=== PATIENT | female | born 1990 | race Caucasian/White ===

== ENCOUNTER 2016-08-22 11:28 | Emergency (ER) | payer MEDICAID ==
[~2016-08-22 11:28] MED LIST: AMOX500T PO; IBUP-232 PO; LEVE500 PO; NORC7.5T PO
--- NOTE | 2016-08-22 12:25 | PD ---
HPI Chief Complaint Pain Date Seen: Aug 22, 2016 Travel History International Travel<30 Days: No Contact w/Intl Traveler<30Days: No History of Present Illness HPI Ms. Uribe is a 25 y/o at 24 weeks gestation per patient report presenting to the OB ED with pelvic and low back pain for . She states that she has had 10/10 stabbing pain since yesterday. The pain radiates from her back to the front and down into her groin. She endorses good movement without loss of fluid, discharge, bleeding, or dysuria. She has not had care thus far in . History Past Medical History Narrative Medical Seizure Disorder with a seizure yesterday Obstetric History Obstetric History All uncomplicated vaginal deliveries Past Surgical History Narrative Surgical None reported Family History Narrative Family History Denies significant family history Social History Alcohol Use: No Tobacco Use: Yes (1 and /2 ppd) Substance Abuse: Yes (Oxycodone 30mg TID (unprescribed) and intermittent Marijuana ) Allergies-Medications (Allergen,Severity, Reaction): Coded Allergies: No Known Allergies (Verified , 11/23/14) Per pt. Home Meds Active Scripts Metronidazole (Flagyl)250 Mg Vry049 Mg PO TID #21 TAB Ref 0 Prov:Louis Beverly MD R1 08/22/16 Ibuprofen (Motrin)600 Mg [id number] Mg PO TIDPRN #30 Prov:Job Melgar MD 01/08/11 Reported Medications Hydrocodone-Acetaminophen 7.5-325 mg ([place] 7.5-325 mg)7.5 Mg/325 Mg Tab1 Tab PO Q4-6H PRN (PAIN) 11/23/14 Amoxicillin 500 Mg Mmv135 Mg PO DIRECTED 11/23/14 Levetiracetam (Keppra)500 Mg Cle323 Mg PO BID 11/23/14 Review of Systems General / Constitutional: No: Fever Eyes: No: Blurred Vision HENT: No: Headaches Cardiovascular: No: Chest Pain or Discomfort Respiratory: No: Short of Breath Gastrointestinal: No: Nausea, Vomiting, Diarrhea Genitourinary: No: Dysuria, Discharge, Vaginal Bleeding Musculoskeletal: No: Weakness Skin: No Rash Neurologic: Seizures Endocrine: No: Polydipsia Hematologic/Lymphatic: No Lymph Node Enlargement Physical Exam Narrative GENERAL: Well-nourished, well-developed patient. SKIN: Warm and dry. HEAD: Normocephalic and atraumatic. EYES: No scleral icterus. No injection or drainage. ENT: No nasal drainage noted. Mucous membranes pink. Airway patent. NECK: Supple, trachea midline. No JVD. CARDIOVASCULAR: Regular rate and rhythm without murmurs, gallops, or rubs. RESPIRATORY: Breath sounds equal bilaterally. No accessory muscle use. ABDOMEN/GI: Abdomen soft, non-tender, bowel sounds present, no rebound, no guarding. TTP over lower 2 quadrants. GENITOURINARY: External Genitalia: intact and normal in appearance Cervix: Posterior Dilatation: Closed Effacement: 0% Station: -3 Presentation: Vertex Membranes: Intact FHT's: Category: 1 Baseline: 145 Reactive: + Variability: Moderate Decels: 0 EXTREMITIES: No cyanosis or edema. BACK: Nontender without obvious deformity. Mild tenderness to lower back near paraspinal muscles. NEUROLOGICAL: Awake and alert. Motor and sensory grossly within normal limits. Five out of 5 muscle strength in all muscle groups. Normal speech. Data Data Vital Signs Reviewed: Yes Orders Vital Signs (Adult) .ON ADMISSION (08/22/16 11:47) ^ Labor Status (08/22/16 11:47) Urinalysis - C+S If Indicated (08/22/16 11:47) Us Ob Pelvis >14 Wks Fetus (08/22/16 ) Meperidine Inj (Demerol Inj) (08/22/16 12:30) Promethazine Inj (Phenergan Inj) (08/22/16 12:30) MDM Medical Record Reviewed: Yes Plan Ms. Uribe is a 25 y/o at 24 weeks per patient report presenting to the OB ED with pelvic and low back pain from [facility] with no care 1. IUP at unknown gestational age -Continue routine antepartum care -Category 1 tracing, reassuring -Encourage oral hydration -OB Diagnostic US for dating, growth, and anatomy evaluation 2. Lower Back Pain -Per history and examination pain most likely musculoskeletal or ligamentous in nature -UA: Moderate leukocyte esterase, 13 WBC with clumps, occasional trichomonas -UC: pending -Flagyl 250mg TID for 7 days -Demerol 50mg IM -Phenergan 25mg IM Discharge: Patient will be discharged home after OB Diagnostic US of evaluation. Discharge instructions given to the patient on when to return to the hospital for further evaluation. Patient also to be discharged home with Flagyl for UTI and trichomonas. SDW: Dr. Cervantes Diagnosis Diagnosis: Primary Impression: 24 weeks gestation of Additional Impression: Low back pain Disposition: 01 DISCHARGE HOME Condition: Stable Scripts Metronidazole (Flagyl)250 Mg [id number] Mg PO TID #21 TAB Ref 0 Prov:Louis Beverly MD R1 08/22/16 Louis Beverly MD R1 Aug 22, 2016 12:25
[2016-08-22 12:55] LABS: BACTERIA, URINE OCC /hpf; BLOOD, URINE NEG (NEG); COMMENT (UR) CULTURE INDICATED; CULTURE IF INDICATED CULTURE INDICATED; GLUCOSE,URINE NEG (NEG); KETONE, URINE 80 mg/dL (NEG); MUCUS URINE FEW /lpf (OCC); NITRITE,URINE NEG (NEG); PH, URINE 6.5 (5.0-8.5); SQUAMOUS EPITHELIAL CELL URINE 3 /hpf (0-5); URINE COLOR DARK-YELLOW (YELLW/STRAW)
[2016-08-22] MEDS ORDERED: PROMETHAZINE INJ 25 MG/ML VIAL IM ONE (14:00)
[2016-08-22] MEDS ORDERED: MEPERIDINE HCL 50 MG/ML VIAL IM ONE (14:00)
[2016-08-22] MEDS ORDERED: METR250 PO (14:36)
--- NOTE | 2016-08-22 14:56 | PD ---
HPI Chief Complaint pain , needs ultrasound to confirm viability before she can go to rehabilitation for drugs Date Seen: Aug 22, 2016 Travel History International Travel<30 Days: No Contact w/Intl Traveler<30Days: No Known Affected Area: No History of Present Illness HPI Patient is a 25-year-old white female is supposed to be 24 weeks gestation according the patient she's here for ultrasound to confirm viability before she can go to the drug rehabilitation facility requirement that facility. She complains of abdominal pain and low back pain generalized malaise she is a chronic user of drugs takes OxyContin on a regular basis she denies bleeding rupture the membranes or contractions. And she has no care to speak of Para: 4 : 5 History Obstetric History Obstetric History 4 vaginal deliveries Social History Narrative Social History She has a history of ongoing drug use and is planning to get in the rehabilitation facility today Alcohol Use: Yes Tobacco Use: Yes Substance Abuse: Yes Allergies-Medications (Allergen,Severity, Reaction): Coded Allergies: No Known Allergies (Verified , 11/23/14) Per pt. Home Meds Active Scripts Metronidazole (Flagyl)250 Mg Kya360 Mg PO TID #21 TAB Ref 0 Prov:Louis Beverly MD R1 08/22/16 Ibuprofen (Motrin)600 Mg Ijh495 Mg PO TIDPRN #30 Prov:Job Melgar MD 01/08/11 Reported Medications Hydrocodone-Acetaminophen 7.5-325 mg ([place] 7.5-325 mg)7.5 Mg/325 Mg Tab1 Tab PO Q4-6H PRN (PAIN) 11/23/14 Amoxicillin 500 Mg Ple324 Mg PO DIRECTED 11/23/14 Levetiracetam (Keppra)500 Mg Mny570 Mg PO BID 11/23/14 Review of Systems Gastrointestinal: Abdominal Pain Musculoskeletal: Pain Physical Exam Narrative GENERAL: Well-nourished, well-developed patient. SKIN: Warm and dry. HEAD: Normocephalic and atraumatic. EYES: No scleral icterus. No injection or drainage. ENT: No nasal drainage noted. Mucous membranes pink. Airway patent. NECK: Supple, trachea midline. No JVD. CARDIOVASCULAR: Regular rate and rhythm without murmurs, gallops, or rubs. RESPIRATORY: Breath sounds equal bilaterally. No accessory muscle use. BREASTS: Bilateral exam showed no masses , no retractions, no nipple discharge. ABDOMEN/GI: Abdomen soft, tender, bowel sounds present, no rebound, no guarding , no CVA tenderness, no back pain is some is noted and somewhat tender Gravid to [-26 week] weeks size Fundal Height: [-1-6 cm] GENITOURINARY: External Genitalia: intact and normal in appearance BUS glands: [-] Cervix: [Posterior-] Dilatation: [-Closed] Effacement: [-] Thick Station: [-3] Presentation: [-] Membranes: [intact ] Uterine Contractions: [none-] FHT's: Category: [1-] Baseline: [-133] Reactive: [yes-] Variability: [-] Decels: [-none] EXTREMITIES: No cyanosis or edema. BACK: Nontender without obvious deformity. No CVA tenderness. NEUROLOGICAL: Awake and alert. Motor and sensory grossly within normal limits. Five out of 5 muscle strength in all muscle groups. Normal speech. Data Data Orders Vital Signs (Adult) .ON ADMISSION (08/22/16 11:47) ^ Labor Status (08/22/16 11:47) Urinalysis - C+S If Indicated (08/22/16 11:47) Us Ob Pelvis >14 Wks Fetus (08/22/16 ) Meperidine Inj (Demerol Inj) (08/22/16 14:00) Promethazine Inj (Phenergan Inj) (08/22/16 14:00) Urine Culture (08/22/16 12:16) Labs Laboratory Tests Test 08/22/16 12:16 Urine Color DARK-YELLOW Urine Turbidity HAZY Urine pH 6.5 Urine Specific [place] 1.034 Urine Protein 30 Urine Glucose (UA) NEG Urine Ketones 80 Urine Occult Blood NEG Urine Nitrite NEG Urine Bilirubin NEG Urine Urobilinogen 4.0 Urine Leukocyte Esterase MOD Urine RBC 4 Urine WBC 13 Urine WBC Clumps RARE Urine Squamous Epithelial 3 Cells Urine Bacteria OCC Urine Mucus FEW Urine Trichomonas OCC Microscopic Urinalysis Comment CULTURE INDICATED Date/Time Procedure Status Source Growth 08/22/16 12:16 Urine Culture Received Urine Clean Catch Pending MDM Interpretation(s) Patient is 25-year-old white female with ultrasound today showing gestational age of 28 weeks 6 days and she has no care to speak of no other gestational criteria. She believes she was 24 weeks but are ultrasounds is 28 wks 6 d essentially 29 weeks gestation and a OPAL of 11/08/16. Plan Patient was seen on OB ED had a reactive NST, no contractions noted. She was having low back pain and was given IM shot of Demerol 50 mg 25 mg Phenergan and , as said before, her ultrasound was done today shows her gestational age at 28 weeks 6 days to be discharged to the rehabilitation facility and encouraged not to do drugs Diagnosis Diagnosis: Primary Impression: Low back pain Additional Impressions: 29 weeks gestation of Drug abuse during Trichomoniasis of bladder Disposition: 01 DISCHARGE HOME Condition: Stable Scripts Metronidazole (Flagyl)250 Mg [id number] Mg PO TID #21 TAB Ref 0 Prov:Louis Beverly MD R1 08/22/16 Patient Instructions: General Instructions Departure Forms: Tests/Procedures Valdez Cervantes II, MD Aug 22, 2016 14:56
[2016-08-22 15:06] VITALS: RESP 18
== END 2016-08-22 15:20 | disposition home or self-care (01) ==
LOC: HOBED 11:28
DX: O98.313 Other infections with a predominantly sexual mode of transmission complicating pregnancy, third trimester (principal); A59.03 Trichomonal cystitis and urethritis; O99.323 Drug use complicating pregnancy, third trimester; F19.10 Other psychoactive substance abuse, uncomplicated; M54.5 Low back pain; Z3A.29 29 weeks gestation of pregnancy
CPT/HCPCS: 76805; 81001; 87086; 96372; 99284; J2175; J2550

== ENCOUNTER 2016-08-24 09:42 | Emergency (ER) | payer MEDICAID ==
[~2016-08-24 09:42] MED LIST changes: +METR250 PO
[2016-08-24 10:04] VITALS: BP 94/51; PULSE 64
[2016-08-24] MEDS ORDERED: MEPERIDINE HCL 25 MG/ML VIAL IM ONE (10:45)
[2016-08-24] MEDS ORDERED: PROMETHAZINE INJ 25 MG/ML VIAL IM ONE (10:45)
[2016-08-24] MEDS ORDERED: LORazepam 2 MG/ML VIAL IM ONE (10:45)
[2016-08-24 11:00] LABS: BACTERIA, URINE OCC /hpf; BLOOD, URINE NEG (NEG); COMMENT (UR) CULT NOT INDICATED; CULTURE IF INDICATED CULT NOT INDICATED; GLUCOSE,URINE NEG (NEG); KETONE, URINE 10 mg/dL (NEG); MUCUS URINE FEW /lpf (OCC); NITRITE,URINE NEG (NEG); PH, URINE 7.5 (5.0-8.5); SQUAMOUS EPITHELIAL CELL URINE 11 /hpf (0-5); URINE COLOR YELLOW (YELLW/STRAW)
[2016-08-24 11:11] LABS: AMPHETAMINE, URINE NEG (NEG); BARBITURATES, URINE NEG (NEG); COCAINE, URINE NEG (NEG)
--- NOTE | 2016-08-24 11:11 | PD ---
HPI Chief Complaint Complains of low back pain and lower abdominal pain diarrhea denies bleeding or rupture the membranes baby is active Date Seen: Aug 24, 2016 Travel History International Travel<30 Days: No Contact w/Intl Traveler<30Days: No History of Present Illness HPI Patient is a 25-year-old white female G4 5 P4 at 29 weeks gestation presents from [facility] for evaluation of abdominal pain low back pain diarrhea overall malaise. Patient was here 2 days ago for basically the same thing at that time had the ultrasound established her gestational at 29 weeks now and prior to that had essentially no care. He has a long history of chronic drug use including cocaine amphetamines OxyContin and other narcotics and for the last several days is done without those substances and may well be having some withdrawal type symptoms symptomatology. She denies bleeding or ruptured membranes or baby is active heart rate tracing is reactive and she is not harrison Para: 4 : 5 History Past Medical History Narrative Medical History of multidrug abuse and use Obstetric History Obstetric History 4 vaginal deliveries all of which in her mother's custody Social History Alcohol Use: Yes Tobacco Use: Yes Substance Abuse: Yes Allergies-Medications (Allergen,Severity, Reaction): Coded Allergies: No Known Allergies (Verified , 11/23/14) Per pt. Home Meds Active Scripts Metronidazole (Flagyl)250 Mg Fim384 Mg PO TID #21 TAB Ref 0 Prov:Louis Beverly MD R1 08/22/16 Ibuprofen (Motrin)600 Mg May746 Mg PO TIDPRN #30 Prov:Job Melgar MD 01/08/11 Reported Medications Hydrocodone-Acetaminophen 7.5-325 mg ([place] 7.5-325 mg)7.5 Mg/325 Mg Tab1 Tab PO Q4-6H PRN (PAIN) 11/23/14 Amoxicillin 500 Mg [id number] Mg PO DIRECTED 11/23/14 Levetiracetam (Keppra)500 Mg Zzi582 Mg PO BID 11/23/14 Review of Systems Gastrointestinal: Abdominal Pain Musculoskeletal: Weakness Physical Exam Narrative GENERAL: Well-nourished, well-developed patient.in mild distress SKIN: Warm and dry. HEAD: Normocephalic and atraumatic. EYES: No scleral icterus. No injection or drainage. ENT: No nasal drainage noted. Mucous membranes pink. Airway patent. NECK: Supple, trachea midline. No JVD. CARDIOVASCULAR: Regular rate and rhythm without murmurs, gallops, or rubs. RESPIRATORY: Breath sounds equal bilaterally. No accessory muscle use. BREASTS: Bilateral exam showed no masses , no retractions, no nipple discharge. ABDOMEN/GI: Abdomen soft, non-tender, bowel sounds present, no rebound, no guarding,no CVAT Gravid to [28 wk-] weeks size Fundal Height: [26 cm-] GENITOURINARY: External Genitalia: intact and normal in appearance BUS glands: [-] Cervix: [posterior-] Dilatation: [-closed] Effacement: [-thick] Station: [-3] Presentation: [-] Membranes: [intact ] Uterine Contractions: [none-] FHT's: Category: [1-] Baseline: [-144] Reactive: [yes-] Variability: [mod-] Decels: [-none] EXTREMITIES: No cyanosis or edema. BACK: Nontender without obvious deformity. No CVA tenderness. NEUROLOGICAL: Awake and alert. Motor and sensory grossly within normal limits. Five out of 5 muscle strength in all muscle groups. Normal speech. Data Data Orders Vital Signs (Adult) .ON ADMISSION (08/24/16 10:23) ^ Labor Status (08/24/16 10:23) Urinalysis - C+S If Indicated (08/24/16 10:23) Ob/Psych Drug Screen, Urine (08/24/16 10:23) Meperidine Inj (Demerol Inj) (08/24/16 10:45) Promethazine Inj (Phenergan Inj) (08/24/16 10:45) Lorazepam Inj (Ativan Inj) (08/24/16 10:45) Comprehensive Metabolic Panel (08/24/16 10:46) Rubella Immune Status (08/24/16 10:46) Hepatitis Profile (08/24/16 10:46) Rapid Plasma Regin (Rpr) W Ttr (08/24/16 10:46) Type And Screen (08/24/16 10:46) Complete Blood Count With Diff (08/24/16 10:46) Special Serology (08/24/16 10:46) MDM Medical Record Reviewed: No Interpretation(s) Patient is 25-year-old white female at 29 weeks gestation by third trimester ultrasound no care prior, presenting with low back pain and abdominal pain diarrhea symptoms consistent with withdrawal 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 She is not harrison her baby is reactive cervix is closed and high, urinalysis 2 days ago was positive for Trichomonas and the bladder was given a prescription for metronidazole should be being given to her by the facility she is in her urinalysis today is pending and will treat accordingly. Her fetus is reactive. Plan Plan for patient to receive a repeat shot of Demerol and Phenergan 25 and 25 and 1 mg Ativan for withdrawal symptoms IM explain the patient she cannot,. Other day for narcotic shots so this is pretty much the endometrial or trying give her for this problem needs to be addressed in the facility she is in for rehabilitation area she's been cleared from obstetric standpoint labs been drawn the day ultrasound is been done and there is no other repeated issue her problem is drugs and rehabilitation from same she needs to be entered into care pattern with her OB provider and the facility is going to move that along Diagnosis Diagnosis: Primary Impression: Low back pain Additional Impression: Drug abuse during Disposition: 70 TRANSFER TO OTHER FACILITY Condition: Stable Valdez Cervantes II, MD Aug 24, 2016 11:11
[2016-08-24 11:47] LABS: AUTOMATED NEUTROPHIL # 8.3 TH/MM3 (1.8-7.7); BASOPHIL % 0.3 % (0.0-2.0); EOSINOPHIL # 0.1 TH/MM3 (0-0.4); EOSINOPHIL % 0.5 % (0.0-4.0); HEMATOCRIT 32.5 % (35.0-46.0); HEMO FLAGS DIFF FINAL; LYMPH % 28.2 % (9.0-44.0); LYMPHOCYTE # 3.5 TH/MM3 (1.0-4.8); MEAN CELL VOLUME 87.2 FL (80.0-100.0); MEAN CORPUSCULAR HEMOGLOBIN 30.5 PG (27.0-34.0); MEAN CORPUSCULAR HGB CONC 34.9 % (32.0-36.0); MONO % 3.2 % (0.0-8.0); NEUT % 67.8 % (16.0-70.0); PLATELET COUNT 474 TH/MM3 (150-450); RED BLOOD COUNT 3.73 MIL/MM3 (4.00-5.30); RED CELL DISTRIBUTION WIDTH 12.6 % (11.6-17.2); WHITE BLOOD COUNT 12.3 TH/MM3 (4.0-11.0)
[2016-08-24 12:10] LABS: ANION GAP 8 MEQ/L (5-15); AST (GOT) 9 U/L (15-37); BICARBONATE 22.1 MEQ/L (21.0-32.0); BLOOD UREA NITROGEN 8 MG/DL (7-18); CHLORIDE 107 MEQ/L (98-107); GLOMERULAR FILTRATION RATE 159 ML/MIN (>89); POTASSIUM 4.5 MEQ/L (3.5-5.1); SODIUM (NA) 137 MEQ/L (136-145)
[2016-08-24 12:14] LABS: ALKALINE PHOSPHATASE 128 U/L (45-117); ALT (GPT) 9 U/L (10-53); TOTAL BILIRUBIN ADULT 0.2 MG/DL (0.2-1.0)
[2016-08-24 12:34] LABS: RUBELLA IGG ANTIBODY 29.6 IU/mL (10.0-500.0); RUBELLA STATUS IMMUNE (IMMUNE)
[2016-08-26 17:01] LABS: RAPID PLASMA REAGIN SCREEN NON-REACTIVE (NON-REACTVE)
[2016-08-30 14:01] LABS: ECSTASY (MDMA) UR NEG (NEG); HEROIN (6-ACETYLMORPHINE) UR NEG (NEG); OBMETHADONE UR NEG (NEG); PHENCYCLIDINE URINE NEG (NEG)
[2016-08-30 14:02] LABS: BATH SALTS (MDPV) UR NEG (NEG); K2 SPICE UR NEG (NEG); OXYCODONE (PERCODAN) NEG (NEG)
== END 2016-08-24 11:25 | disposition short-term general hospital (02) ==
LOC: HOBED 09:42
DX: O26.893 Other specified pregnancy related conditions, third trimester (principal); M54.5 Low back pain; R10.9 Unspecified abdominal pain; R19.7 Diarrhea, unspecified; O09.33 Supervision of pregnancy with insufficient antenatal care, third trimester; O99.323 Drug use complicating pregnancy, third trimester; Z3A.29 29 weeks gestation of pregnancy
CPT/HCPCS: 80053; 80074; 80307; 81001; 85025; 86592; 86703; 86762; 86850; 86900; 86901; 96372; 99284; G0481; J2060; J2175; J2550